=== PATIENT | female | born 1975 | race Caucasian/White ===

== ENCOUNTER 2020-05-14 04:54 | Emergency (ER) | payer BC ==
[2020-05-14 05:03] VITALS: BP 123/76
--- NOTE | 2020-05-14 05:12 | ED Physician Documentation ---
History of Present Illness - Stated complaint Stated Complaint: R LEG PX - Chief complaint Chief Complaint: Ext Problem - History obtained from History obtained from: Patient - History of Present Illness Timing: How many days ago (4-5) Pain level now: 4 Improved by: no ameliorating factors Worsened by: no apparent exacerbating factors - Additonal information Additional information: c/o atraumatic right knee pain, episodic x 4-5 days with no pain between episodes. Pain is right knee when episodes occur, but often radiates to right groin. Episodes have no apparent exacerbating factors, and are as likely to happen at rest as with movement or activity. Denies swelling. She was evaluated yesterday in another facility where she had xrays of the right knee and RLE US, both of which were unremarkable except for "arthritis" on xrays (per patient). Review of Systems Constitutional: denies: Fever, Chills, Sweats Cardiac: denies: Chest pain / pressure Respiratory: denies: Dyspnea Musculoskeletal: reports: Back pain (mild LBP), Joint pain. denies: Neck pain, Extremity swelling, Joint swelling, Pain with weight bearing Neurologic: denies: Focal weakness, Numbness PD PAST MEDICAL HISTORY - Past Medical History Endocrine/Autoimmune: HyPOthyroidism - Present Medications Home Medications: Ambulatory Orders Medication Instructions Recorded Confirmed Cyclobenzaprine [Flexeril] 10 mg PO TID PRN #20 tablet 05/14/20 HYDROcod/ACETAM 5/325 [[place] 5/325] 1 - 2 ea PO Q6H PRN #15 tablet 05/14/20 Thyroid,Pork [Nature-Throid] 1 tab PO DAILY 05/14/20 05/14/20 - Allergies Allergies/Adverse Reactions: Allergies Allergy/AdvReac Type Severity Reaction Status Date / Time No Known Drug Allergies Allergy Verified 05/14/20 05:03 - Social History Does the pt smoke?: No Smoking Status: Never smoker PD ED PE NORMAL - Vitals Vital signs reviewed: Yes - General General: Alert and oriented X 3, No acute distress, Well developed/nourished - Respiratory Respiratory: No respiratory distress, Clear bilaterally - Derm Derm: Normal color, Warm and dry, No rash - Extremities Extremities: No deformity, No tenderness to palpate, Normal ROM s pain, No edema, No calf tenderness / cord Results - Vitals Vitals: Vital Signs - 24 hr 05/14/20 05:00 Temperature 35.7 C L Heart Rate 79 Respiratory 16 Rate Blood Pressure 123/76 O2 Saturation 98 Oxygen O2 Source Room air PD MEDICAL DECISION MAKING - ED course Complexity details: considered differential, d/w patient ED course: normal exam; specifically, the right knee is entirely nontender, normal color, not hot to touch, has FROM intact without pain elicited with ROM. She had xrays and RLE US yesterday, unremarkable results except for knee arthritic changes (per patient). emergent testing not indicated at this time Departure - Departure Disposition: 01 Home, Self Care Clinical Impression: Knee pain, right Condition: Good Instructions: ED Knee Pain [facility] Prescriptions: Cyclobenzaprine [Flexeril] 10 mg PO TID PRN #20 tablet PRN Reason: Spasms HYDROcod/ACETAM 5/325 [[place] 5/325] 1 - 2 ea PO Q6H PRN #15 tablet PRN Reason: Pain Discharge Date/Time: 05/14/20 05:44
[2020-05-14] MEDS ORDERED: oxyCODONE 5 MG TABLET PO STA (05:35)
== END 2020-05-14 05:44 | disposition home or self-care (01) ==
LOC: ED 04:54
DX: M25.561 Pain in right knee (principal)
CPT/HCPCS: 99282; 99283; A9270